=== PATIENT | male | born 1950 | race Caucasian/White ===

== ENCOUNTER → 2021-07-21 | Outpatient (CLI) | payer OTHER | LOC: CT 13:23 | DX: I71.4 Abdominal aortic aneurysm, without rupture (principal); N20.0 Calculus of kidney | CPT/HCPCS: 36415; 82565; Q9967 ==

== ENCOUNTER → 2021-09-13 | Outpatient (CLI) | payer OTHER | LOC: CT 12:27 | DX: I71.4 Abdominal aortic aneurysm, without rupture (principal) | CPT/HCPCS: 36415; 82565; 84520; Q9967 ==